=== PATIENT | male | born 1985 | race Caucasian/White ===

== ENCOUNTER 2021-12-19 01:33 | Emergency (ER) | payer OTHER ==
[2021-12-19 02:04] VITALS: BMI 26.6
[2021-12-19] MEDS ORDERED: SODIUM CHLORIDE 0.9% 500 ML INFUS.BAG IV ONE (02:35)
[2021-12-19] MEDS ORDERED: METOCLOPRAMIDE HCL INJECTION 10 MG/2 ML VIAL IVPB ONE (02:39)
[2021-12-19] MEDS ORDERED: ACETAMINOPHEN 1000 MG/100 ML BAG IVPB ONE (02:39)
[2021-12-19 03:17] LABS: VENOUS O2 SATURATION 30.2 % (70-80); VENOUS PH 7.31 (7.310-7.410)
[2021-12-19 03:26] LABS: BASO % 0.7 % (0-2.0); EOS % 1.7 % (0-4.5); HEMATOCRIT 42.9 % (35.4-49); HEMOGLOBIN 15.1 GM/dL (11.7-16.9); LYMPH % 35.7 % (8-40); MCHC 35.3 g/dl (32.0-35.9); MEAN CELL VOLUME 90.7 fl (80-96); MEAN PLT VOLUME 8.3 fl (7.5-11.1); NEUT % 50.9 % (42.8-82.8); PLATELET COUNT 214 10^3/uL (134-434); RBC 4.73 M/mm3 (4.00-5.60); RDW 11.8 % (11.9-15.9); WHITE BLOOD COUNT 3.9 K/mm3 (4.0-10.0)
[2021-12-19 03:39] LABS: CHLORIDE 106 mmol/L (98-107); SODIUM 139 mmol/L (136-145)
[2021-12-19 03:42] LABS: ALBUMIN 4.3 g/dl (3.4-5.0); ANION GAP 3 MMOL/L (8-16); CO2 30 mmol/L (21-32); GLUCOSE,RANDOM 117 mg/dL (74-106)
[2021-12-19 03:45] LABS: CREATININE 0.8 mg/dL (0.55-1.3); SGOT/AST 20 U/L (15-37); SGPT/ALT 35 U/L (13-61)
[2021-12-19 03:46] LABS: BILIRUBIN,TOTAL 0.4 mg/dL (0.2-1); TOT PROT 7.8 g/dl (6.4-8.2)
[2021-12-19 03:48] LABS: ALK PHOS 71 U/L (45-117)
[2021-12-19 04:07] LABS: CALCIUM 9.1 mg/dL (8.5-10.1)
[2021-12-19 06:13] VITALS: BP 117/64; PULSE 87
== END 2021-12-19 06:13 | disposition home or self-care (01) ==
LOC: JER 01:33
PROC: 3E0333Z Introduction of Anti-inflammatory into Peripheral Vein, Percutaneous Approach (ICD-10-PCS; principal; 2021-12-19)
PROC: 3E033GC Introduction of Other Therapeutic Substance into Peripheral Vein, Percutaneous Approach (ICD-10-PCS; 2021-12-19)
DX: R42 Dizziness and giddiness (principal)
CPT/HCPCS: 36415; 71046-TC-FY; 80053; 80307; 82375; 82803; 84443; 85025; 93005; 93010; 99285-25; J0131